=== PATIENT | female | born 1955 | race Caucasian/White ===

== ENCOUNTER 2017-03-30 14:48 | Emergency (ER) | payer MEDICARE ==
[~2017-03-30 14:48] MED LIST: ALBU2.5V2 IH; ALBU8.5H3 IH; ALPR0.255 PO; AMLO10TA4 PO; CALC667C10 PO; CALC667C4 PO; CARV12.511 PO; DIPH1TAB24 PO; DIVA500T2 PO; FLUT10SP NASAL; LORA0.5T2 PO; ONDA4TAB10 PO; OXYGEN NASAL; PRAV20TA4 PO; RENA-VITE PO; SEVE800T7 PO; VALA500T PO
== END 2017-03-30 16:11 | disposition home or self-care (01) ==
LOC: EDH 14:48
DX: S80.02XA Contusion of left knee, initial encounter (principal); S80.01XA Contusion of right knee, initial encounter; I12.0 Hypertensive chronic kidney disease with stage 5 chronic kidney disease or end stage renal disease; N18.6 End stage renal disease; Z87.891 Personal history of nicotine dependence; W18.39XA Other fall on same level, initial encounter; Y93.01 Activity, walking, marching and hiking; Y92.89 Other specified places as the place of occurrence of the external cause; Y99.8 Other external cause status
CPT/HCPCS: 73562

== ENCOUNTER 2017-05-18 11:50 | Emergency (ER) | payer MEDICARE | END 2017-05-18 12:30 | disposition home or self-care (01) | LOC: EDH 11:50 | DX: K42.9 Umbilical hernia without obstruction or gangrene (principal); I12.0 Hypertensive chronic kidney disease with stage 5 chronic kidney disease or end stage renal disease; N18.6 End stage renal disease; I73.00 Raynaud's syndrome without gangrene | CPT/HCPCS: 99281 ==